=== PATIENT | male | born 1975 | race Caucasian/White ===

== ENCOUNTER 2017-04-30 06:54 | Day surgery (SDC) | payer BC ==
[2017-04-30] MEDS ORDERED: Lactated Ringers 1,000 ML IV SCH ×2 (07:15→09:15)
[2017-04-30] MEDS ORDERED: ceFAZolin 2 GM in Premix Bag 1 BAG IV ONE (07:15)
[2017-04-30] MEDS ORDERED: Lactated Ringers 1,000 ML IV ONE (08:30)
[2017-04-30] MEDS ORDERED: HYDROmorphone 2 MG/ML SDV IV ONE (08:30)
[2017-04-30] MEDS ORDERED: Propofol 200 MG/20 ML SDV IV ONE (08:30)
[2017-04-30] MEDS ORDERED: Ondansetron 4 MG/2 ML SDV IVPUSH ONE (08:30)
[2017-04-30] MEDS ORDERED: fentaNYL 100 MCG/2 ML SDV IV ONE (08:30)
[2017-04-30] MEDS ORDERED: Ketorolac 30 MG/ML SDV IVPUSH ONE (08:30)
[2017-04-30] MEDS ORDERED: Midazolam 1 MG/ML 2 ML SDV IV ONE (08:30)
[2017-04-30] MEDS ORDERED: Dexamethasone 4 MG/ML 5 ML MDV IVPUSH ONE (08:30)
[2017-04-30] MEDS ORDERED: Lidocaine 1% with EPINEPHrine 1:100,000 20 ML MDV ONE (09:02)
[2017-04-30] MEDS ORDERED: Bupivacaine 0.5% 30 ML SDV ONE (09:02)
[2017-04-30] MEDS ORDERED: Naloxone 0.4 MG/ML SDV IVPUSH PRN (09:14)
[2017-04-30] MEDS ORDERED: fentaNYL 100 MCG/2 ML SDV IVPUSH PRN (09:14)
[2017-04-30] MEDS ORDERED: Albuterol 0.083% 2.5 MG/3 ML Neb Soln NEB PRN (09:14)
[2017-04-30] MEDS ORDERED: Promethazine 25 MG/ML SDV IM PRN (09:14)
[2017-04-30] MEDS ORDERED: Ondansetron 4 MG/2 ML SDV IVPUSH PRN (09:14)
[2017-04-30] MEDS ORDERED: HYDROmorphone 2 MG/ML SDV IVPUSH PRN (09:14)
[2017-04-30] MEDS ORDERED: HYDROmorphone 2 MG/ML SDV IV PRN (09:14)
--- NOTE | 2017-04-30 10:09 | PCM.OPNOTE ---
- General Post-Op/Procedure Note Date of Surgery/Procedure: 04/30/17 Operative Procedure(s): rih repair with mesh Findings: indirect rih Pre Op Diagnosis: rih Post-Op Diagnosis: Same Anesthesia Technique: General ET Tube, Local (10 ml 1% lido with epi/0.5% buvipicaine) Primary Surgeon: Steven Hunt Anesthesia Provider: Ho Woodson Pathology: hernia sac and contents Complications: None Condition: Good Free Text/Narrative:: see dictation
[2017-04-30] MEDS ORDERED: Acetaminophen/HYDROcodone 325-5 MG Tab PO ONE (10:46)
--- NOTE | 2017-04-30 11:03 | OR ---
DATE OF OPERATION: 04/30/2017 SURGEON: Steven Hunt MD PROCEDURE PERFORMED: Repair of right inguinal hernia. PREOPERATIVE DIAGNOSIS: Right inguinal hernia repair. POSTOPERATIVE DIAGNOSIS: Right inguinal hernia repair. INDICATIONS FOR PROCEDURE: This is a 42-year-old white male, who has a symptomatic right inguinal hernia that is fairly large. He was offered and accepted repair. INTRAOPERATIVE FINDINGS: A large indirect hernia with hernia sac extending down three-quarters of the spermatic cord was identified. This was repaired with a Phasix plug and patch, size large patch, reference #[id number], lot number [id number] with an expiration date of 2018-10-23. A total of 10 mL of 1:1 mixture of 1% lidocaine with epinephrine and 0.5% bupivacaine was used. DESCRIPTION OF PROCEDURE: After an excellent general anesthetic was administered, the patient was prepped and draped in the usual sterile manner. Local was used to infiltrate the area of the planned incision site in the right inguinal area. An incision was then made with a #15 scalpel blade and the underlying tissue was dissected free using electrocautery. Superficial inferior epigastric vessels were clamped, divided, and tied with 2-0 Vicryl ties. Aponeurosis of the external oblique was exposed, more local was placed below the cord and the external bite was opened out up through the external ring. The cord was encircled with a finger and a 1-inch Stella drain was wrapped around the cord. Due to the size of the hernia sac and the size of the spermatic cord, the testicle was also delivered into the field. Careful dissection was carried out dissecting the hernia sac free from the surrounding structures. We did open the hernia sac and transected, and this allowed us to take down the adhesions of the omentum that was near the base of the hernia sac itself. The hernia sac was then twisted around on itself and suture ligated with an 0 Vicryl suture. The remainder of the hernia sac was excised from the remainder of the spermatic cord. The testicle was then delivered back into its normal anatomic position. The plug was then inserted into the defect in the internal ring and tacked into position with interrupted 0 Vicryl. The overlay mesh was then placed on the floor of the canal and a keyhole was cut from the superior aspect of the mesh. This was then tacked along inferiorly using a running 0 Vicryl. The keyhole was closed with a running 0 Vicryl as well. Opti-Fix was then used to tack the mesh to the floor of the inguinal canal and excess mesh on the edges was excised. The area was irrigated. The ilioinguinal nerve, which had been identified appeared to have been injured. This was clamped, divided, and tied with a 2-0 Vicryl tie. The aponeurosis of the external oblique was closed with a running 3- 0 Vicryl and 3-0 Vicryl was used to close Uzair's fascia and angelita were used to close the skin. Needle, sponge, and instrument counts were reported as correct. The patient was taken to recovery room in good condition. /[id number] KELLEN/YAMILETH
== END 2017-04-30 11:32 | disposition home or self-care (01) ==
LOC: FB.SDS 06:54
PROVIDERS: ATTEND Surgery
DX: K40.30 Unilateral inguinal hernia, with obstruction, without gangrene, not specified as recurrent (principal); I10 Essential (primary) hypertension; E66.01 Morbid (severe) obesity due to excess calories; Z68.32 Body mass index [BMI] 32.0-32.9, adult; F17.210 Nicotine dependence, cigarettes, uncomplicated; Z79.899 Other long term (current) drug therapy; Z82.49 Family history of ischemic heart disease and other diseases of the circulatory system
CPT/HCPCS: 49507; 93005; A9270; J0690; J7120; 88300; C1781; J1100; J1170; J1885; J2250; J2405; J2704; J3010

== ENCOUNTER 2017-09-07 13:29 | Emergency (ER) | payer BC ==
--- NOTE | 2017-09-09 13:52 | ER ---
DATE SEEN: 09/07/2017 TIME SEEN: The patient was seen at 1540 hours. HISTORY OF PRESENT ILLNESS: This is a 42-year-old, who comes in with a history of left groin and left flank pain for 1 week duration. Past medical history of stones noted. He has not used Flomax. He has been taking Amoxil for tooth #19 crown fracture. PHYSICAL EXAMINATION: GENERAL: The patient is without pain presently. He is not having flank pain, abdominal pain, and groin pain. The patient at present is happy and alert without abdominal pain. VITAL SIGNS: 150/105, repeat 159/107, heart rate 165, respirations 18, oxygen saturation 100%, temperature 37.2 degrees centigrade, 108.8 kg, 33.5 kg/m2. HEENT: Without abnormality. Pharynx without abnormality. NECK: Supple. No thyromegaly. LUNGS: Clear without rales, rhonchi, or wheezes. HEART: S1, S2. Normal regular rate and rhythm. ABDOMEN: Soft. No guarding. No abdominal discomfort. No CVA percussion or tenderness. No suprapubic fullness. GENITALIA: Negative. No groin abnormality. No hernia demonstrated. EXTREMITIES: Lower extremities without abnormality. Lower extremities without edema. RECTAL: Not performed. DERMIS: Negative. No rash. ASSESSMENT: The patient has spontaneously passed renal stone, no longer has pain. Further studies done. PLAN: Urine culture performed. Urinalysis; moderate bacteria, few calcium oxalate crystals, squamous epithelial cells, 5-10 wbc's, 20-30 rbc's, negative enzymes, and specific gravity appropriate, large occult blood. Because the patient was feeling so well, I did not plan to start a urinary tract infection medicine. Stool culture pending. Should it be abnormal, then we will start antibiotics. The patient to follow up with his doctor this week. ASSESSMENT: 1. History of renal stones. 2. The patient passed right ureteral stone in the ED. 3. Bacteriuria with low probability of kidney infection. Check of UC no growth on 09/10/17 8 AM. PLAN: Forego antibiotics and if cultures positive, treat accordingly. /[id number] [place]/YAMILETH BELTRAN
== END 2017-09-07 16:06 | disposition home or self-care (01) ==
LOC: FB.ED 13:29
DX: R82.71 Bacteriuria (principal); Z87.442 Personal history of urinary calculi
CPT/HCPCS: 81001; 87086; 99283